=== PATIENT | female | born 1970 | race Caucasian/White ===

== ENCOUNTER 2020-08-04 07:10 | Day surgery (SDC) | payer OTHER ==
[~2020-08-04] VITALS: Ht 170.2 cm; Wt 70.0 kg
[~2020-08-04 07:10] MED LIST: PRENATAL VITAM1 EACH PO; PROBIOTIC1 EAC1 PO
--- NOTE | 2020-08-04 08:29 | NUR ---
08/04/20 0829 Katherine Zhu 0867 PATIENT ARRIVES TO PACU AWAKE BUT DROWSY. ASLEEP WHEN NOT STIMULATED. RESP EVEN AND UNLABORED, NC AT 2 LITERS.
--- NOTE | 2020-08-04 10:20 | OR ---
[facility] [address], [place] [address] Signed DATE OF OPERATION: SURGEON: Steven Shipman MD PREOPERATIVE DIAGNOSES: 1. Irritable bowel syndrome. 2. Generalized abdominal pain. 3. Bloating. 4. Constipation and diarrhea. 5. Elevated stool calprotectin (82). 6. Paternal grandfather with colon cancer and polyps, late 70s. POSTOPERATIVE DIAGNOSES: 1. Minimal sigmoid diverticulosis. 2. 4 mm polyp at 35 cm. PROCEDURE: Colonoscopy with cold biopsies of the right colon, transverse colon, left colon, sigmoid colon and rectum. ESTIMATED BLOOD LOSS: None. INDICATIONS: Carmelo is a 49-year-old female asked to see me for a colonoscopy. She has had various abdominal complaints as listed above. She has been diagnosed with irritable bowel syndrome back to around [address] Dr[address] Andres Simon was her web marketing specialist 5 years ago. He is now retired. She had an upper endoscopy at that time and the biopsies were unremarkable. She feels like her symptoms are getting worse. She has been following along with her geographic area intelligence officer and her chiropractor. Her stool calprotectin level was elevated at 82. Consequently, she has been asked to see me for colonoscopy with biopsies. In addition, her paternal grandfather had colon cancer and polyps in his late 70s. He is still alive at age 100. She also mentioned the previous barium enema with Dr. Simon. In the office, I gave her a pamphlet on colonoscopy and we looked at that together along with the risks including, but not limited to gas bloating, crampy abdominal pain, bleeding, perforation requiring surgery, and missed diagnosis. We also discussed the need for IV conscious sedation. She had expressed understanding and wished to proceed. PROCEDURE NOTE: Carmelo was taken into our endoscopy suite and placed in the left lateral decubitus Electronically Signed By: STEVEN SHIPMAN MD 08/04/20 1020 PATIENT NAME: CARMELO SANCHEZ OPERATIVE REPORT DATE OF : 74 REPORT #: [id number] PHYSICIAN: STEVEN SHIPMAN MD PCP: DELANEY BYERS PAC REPORT IS CONFIDENTIAL AND NOT TO BE RELEASED WITHOUT AUTHORIZATION [facility] [address], [place] [address] Signed position. She took a total of 12 mg of Versed and 200 mcg of fentanyl to cover the case. A digital rectal exam was performed and this was unremarkable. She has excellent perianal hygiene. She had good sphincter tone. The adult colonoscope was then introduced and advanced under direct visualization of camera. It took some extra sedation and abdominal compression in order to advance the scope directly into the cecum itself. Her prep was quite good. We could easily see her appendiceal orifice. We made multiple attempts to turn and go into the terminal ileum. However, the angle was quite sharp and we never were able to intubate the terminal ileum. Consequently, we slowly withdrew the scope. We had taken pictures throughout for photodocumentation. We saw no inflammatory changes whatsoever throughout her entire colon or rectum. We took the random biopsies as listed above. She does have a few diverticula in the sigmoid colon. They were small in size, few in number, and scattered about. Once in the rectum, the scope had been retroflexed and she has very minimal standard internal hemorrhoid tissue. After this, the gas was suctioned out and the colonoscope removed. Carmelo tolerated the procedure quite well. RECOMMENDATIONS: I will see Carmelo back in my office in 7 to 14 days to review her results. She could always consider a small bowel follow-through and/or capsule endoscopy. Steven Shipman MD ALB/MODL /[id number] cc: MD Dr. Adeline Ramon PA-C Copies: STEVEN SHIPMAN MD Electronically Signed By: STEVEN SHIPMAN MD 08/04/20 1020 PATIENT NAME: CARMELO SANCHEZ OPERATIVE REPORT DATE OF : 74 REPORT #: [id number] PHYSICIAN: STEVEN SHIPMAN MD PCP: DELANEY BYERS REPORT IS CONFIDENTIAL AND NOT TO BE RELEASED WITHOUT AUTHORIZATION [address] [address] Signed DELANEY BYERS ~ Electronically Signed By: STEVEN SHIPMAN MD 08/04/20 1020 PATIENT NAME: JOSE ENRIQUEDOLORESCARMELO JANEE OPERATIVE REPORT DATE OF : 74 REPORT #: [id number] PHYSICIAN: STEVEN SHIPMAN MD PCP: DELANEY BYERS PAC REPORT IS CONFIDENTIAL AND NOT TO BE RELEASED WITHOUT AUTHORIZATION
--- NOTE | 2020-08-09 15:30 | PATH ---
[facility] [address] [place], [place] [address] Signed SPECIMEN(S): A COLON POLYP AT 45 CM SPECIMEN(S): B ASCENDING COLON BIOPSY SPECIMEN(S): C TRANSVERSE COLON BIOPSY SPECIMEN(S): D DESCENDING COLON BIOPSY SPECIMEN(S): E SIGMOID COLON BIOPSY SPECIMEN(S): F RECTUM SPECIMEN SOURCE: A. COLON POLYP AT 45 CM B. ASCENDING COLON BIOPSY C. TRANSVERSE COLON BIOPSY D. DESCENDING COLON BIOPSY E. SIGMOID COLON BIOPSY F. RECTUM CLINICAL HISTORY: IBS. Diarrhea. MICROSCOPIC DESCRIPTION: Histologic sections of all submitted blocks are examined by light microscopy. A Arron stain (with appropriately staining controls) on speimcen B is negative for Spirochetosis. These findings, together with the gross examination, support the pathologic diagnosis. FINAL PATHOLOGIC DIAGNOSIS: A. Colon, polyp at 45 cm, polypectomy: - Tubular adenoma. - Negative for high-grade dysplasia or malignancy. B. Colon, ascending, biopsy: - Colonic mucosa with no histopathologic abnormality. - Negative for active, chronic, or microscopic colitis. - Negative for dysplasia or malignancy. C. Colon, transverse, biopsy: - Colonic mucosa with no histopathologic abnormality. - Negative for active, chronic, or microscopic colitis. - Negative for dysplasia or malignancy. D. Colon, descending, biopsy: - Colonic mucosa with no histopathologic abnormality. - Negative for active, chronic, or microscopic colitis. - Negative for dysplasia or malignancy. E. Colon, sigmoid, biopsy: - Colonic mucosa with no histopathologic abnormality. PATIENT NAME: CARMELO SANCHEZ PATHOLOGY DATE OF : 74 REPORT #: [id number] PHYSICIAN: MERLYN DALY PCP: DELANEY BYERS PAC REPORT IS CONFIDENTIAL AND NOT TO BE RELEASED WITHOUT AUTHORIZATION [facility] [address] [place], [place] [address] Signed - Negative for active, chronic, or microscopic colitis. - Negative for dysplasia or malignancy. F. Rectum, biopsy: - Rectal mucosa with no histopathologic abnormality. - Negative for active or chronic proctitis. - Negative for dysplasia or malignancy. NAL:cml:C2NR GROSS DESCRIPTION: Six specimens are received in six containers, labeled "JS." A. The specimen, labeled "JS, colon polyp at 45 cm," is received in formalin and consists of one conn soft tissue fragment that measures 0.2 cm in greatest dimension. The specimen is entirely submitted in cassette (A1). B. The specimen, labeled "JS, ascending colon biopsy," is received in formalin and consists of one conn soft tissue fragment that measures 0.2 cm in greatest dimension. The specimen is entirely submitted in cassette (B1). C. The specimen, labeled "JS, transverse colon biopsy," is received in formalin and consists of one conn soft tissue fragment that measures 0.2 cm in greatest dimension. The specimen is entirely submitted in cassette (C1). D. The specimen, labeled "JS, descending colon biopsy," is received in formalin and consists of one conn soft tissue fragment that measures 0.1 cm in greatest dimension. The specimen is entirely submitted in cassette (D1). E. The specimen, labeled "JS, sigmoid colon biopsy," is received in formalin and consists of one conn soft tissue fragment that measures 0.2 cm in greatest dimension. The specimen is entirely submitted in cassette (E1). F. The specimen, labeled "JS, rectum biopsy," is received in formalin and consists of one conn soft tissue fragment that measures 0.1 cm in greatest dimension. The specimen is entirely submitted in cassette (F1). JS (under the direct supervision of a pathologist) The Gross Description was prepared using a voice recognition system. The report was reviewed for accuracy; however, sound-alike word errors, addition and/or deletions may occur. If there is any question about this report, please contact Client Services. PATIENT NAME: CARMELO SANCHEZ PATHOLOGY DATE OF : 74 REPORT #: [id number] PHYSICIAN: MERLYN DALY PCP: DELANEY BYERS PAC REPORT IS CONFIDENTIAL AND NOT TO BE RELEASED WITHOUT AUTHORIZATION [facility] [address] [place], [place] [address] Signed PERFORMING LABORATORY: The technical component was performed by [email or web address] [address] (Interior Design Coordinator: Mayra Good MD; CLIA# [id number]). [facility], [address] [address] (CLIA# [id number]). Diagnostician: Fallon Blount MD Pathologist Electronically Signed 08/09/2020 Copies: ~ PATIENT NAME: CARMELO SANCHEZ PATHOLOGY DATE OF : 74 REPORT #: [id number] PHYSICIAN: MERLYN PATHOLOGY PCP: DELANEY BYERS REPORT IS CONFIDENTIAL AND NOT TO BE RELEASED WITHOUT AUTHORIZATION
== END 2020-08-04 09:40 | disposition home or self-care (01) ==
LOC: OPS 07:10 → DS 07:10 → OPS 08:15
PROVIDERS: ATTEND Colon & Rectal Surgery
PROC: 0DBK8ZX Excision of Ascending Colon, Via Natural or Artificial Opening Endoscopic, Diagnostic (ICD-10-PCS; 2020-08-04)
PROC: 0DBL8ZX Excision of Transverse Colon, Via Natural or Artificial Opening Endoscopic, Diagnostic (ICD-10-PCS; 2020-08-04)
PROC: 0DBN8ZX Excision of Sigmoid Colon, Via Natural or Artificial Opening Endoscopic, Diagnostic (ICD-10-PCS; 2020-08-04)
PROC: 0DBP8ZX Excision of Rectum, Via Natural or Artificial Opening Endoscopic, Diagnostic (ICD-10-PCS; 2020-08-04)
PROC: 0DBM8ZX Excision of Descending Colon, Via Natural or Artificial Opening Endoscopic, Diagnostic (ICD-10-PCS; 2020-08-04)
PROC: 0DBE8ZX Excision of Large Intestine, Via Natural or Artificial Opening Endoscopic, Diagnostic (ICD-10-PCS; principal; 2020-08-04 08:15)
DX: R19.7 Diarrhea, unspecified (principal); R10.84 Generalized abdominal pain; R14.0 Abdominal distension (gaseous); K57.30 Diverticulosis of large intestine without perforation or abscess without bleeding; D12.6 Benign neoplasm of colon, unspecified; Z88.0 Allergy status to penicillin; Z88.2 Allergy status to sulfonamides; Z80.0 Family history of malignant neoplasm of digestive organs
CPT/HCPCS: 84703; 99153; G0500; J2250; J3010; J7121

== ENCOUNTER 2021-02-01 15:18 | Emergency (ER) | payer OTHER ==
[~2021-02-01] VITALS: Ht 170.2 cm; Wt 65.8 kg
[2021-02-01] MEDS ORDERED: SERTRALINE HCL50 MG PO (16:00)
[2021-02-01] MEDS ORDERED: PROGESTERO50 MG/1 M1 IM (16:01)
--- NOTE | 2021-02-01 17:00 | EKG ---
[facility] [address] [facility] [place], [place] [address] Signed Sinus tachycardia T wave abnormality, consider inferior ischemia Abnormal ECG No previous ECGs available Confirmed by JAYLEEN QIU DO ([id number]) on 02/01/2021 5:00:24 PM Electronically Signed By: JAYLEEN QIU DO 02/01/21 1700 PATIENT NAME: CARMELO SANCHEZ Electrocardiogram DATE OF : 74 PHYSICIAN: JAYLEEN QIU DO REPORT #: [id number] REPORT IS CONFIDENTIAL AND NOT TO BE RELEASED WITHOUT AUTHORIZATION
[2021-02-01] MEDS ORDERED: HYDROCODON-ACE1 EA10 PO (19:06)
[2021-02-01] MEDS ORDERED: PROMETHAZINE HC25 MG PR (19:06)
== END 2021-02-01 19:45 | disposition home or self-care (01) ==
LOC: ED 15:18
DX: U07.1 COVID-19 (principal); Z88.0 Allergy status to penicillin; Z88.2 Allergy status to sulfonamides; Z79.899 Other long term (current) drug therapy
CPT/HCPCS: 71045; 80053; 83735; 84484; 85007; 85025; 93005; 93010; 96374; 96375; 99284-25; C9803; J1885; J2405; J2765; J7030; U0003

== ENCOUNTER 2021-02-03 10:35 | Inpatient (IN) | payer OTHER ==
[~2021-02-03] VITALS: Ht 170.2 cm; Wt 68.2 kg
[~2021-02-03 10:35] MED LIST changes: +HYDROCODON-ACE1 EA10 PO; +PROGESTERO50 MG/1 M1 IM; +PROMETHAZINE HC25 MG PR; +SERTRALINE HCL50 MG PO
--- OUTSIDE RECORDS SUMMARY | 2021-02-03 10:42 | XMS ---
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 Unique has no Care Guidelines for this patient. [facility] VISIT COUNT (12 MO.) 2 [facility] T[facility] NOTE: Visits indicate total known visits. ED/C VISIT TRACKING (12 MO.) [facility] [place] TYPE: Emergency COMPLAINT: - COVID+,N/V,ABD PAIN 02/01/2021 15:18 [facility] [place] TYPE: Emergency COMPLAINT: - ABD PAIN, HEADACHE, NAUSEA INPATIENT VISIT TRACKING (12 MO.) No inpatient visits to display in this time frame [email or web address]
--- NOTE | 2021-02-03 20:25 | NUR ---
PT ARRIVES TO FLOOR. ADMISSION PROCESS COMPLETED. PT ASSISTED UP TO THE BATHROOM AND BACK TO BED. PT UNSTEADY ON HER FEET EDUCATION PROVIDED REGARDING NOT GETTING UP WITHOUT ASSISTANCE. PT STATES UNDERSTANDING. CALL LIGHT PROVIDED, AND EDUCATION ON HOW TO USE. CLINIQUE COUNTER MANAGER TO ROOM TO TAKE PT TO CT. PT DENIES NEEDS AT THIS TIME.
--- NOTE | 2021-02-03 21:45 | NUR ---
Up to bsc, voided, back to bed, unsteady gait, 1pa, on room air. tele#[address] Back from DI
--- NOTE | 2021-02-03 22:51 | NUR ---
PT CONTINUES TO C/O ABD/H/E AND NECK PAIN, ABLE TO TURN AND EXTEND HEAD/NECK AREA. DRY HEAVING, MEDICATED WITH DILAUDID 1MG IV AND ANTIEMETIC MED. IVF STARTED AND PROTONIX GIVEN. MED TEACHING ON ALL MEDS DONE. FIELD START IV LAC PATENT. COOP WITH ASSESSMENT. TELE#[address]. DESSATTED TO 84% A FEW MINUTES AFTER BEING MEDICATED, VERY DROWSY. AND O2 1L NC APPLIED, CURRENTL SATS 88%. INCREASED TO 2LNC AND SATTING AT 92%, MOIST NON PRODUCTIVE COUGH PRESENT, HOB ELEVATED, TOLERATING ICE CHIPS. CALL LIGHT AT BEDSIDE. ON AIRBORNE ISOLATION PRECAUTIONS
--- NOTE | 2021-02-04 01:01 | NUR ---
RESTING, NO FURTHER C/O N/V OR PAIN. RESTING, O2 2L NC IN PLACE SATS 94% PER TELE#10 SINUS RHYTHM
--- NOTE | 2021-02-04 03:06 | NUR ---
MEDICATED WITH DILAUDID 0.5MG IV C/O 02/14 NECK/ONOFRE ABD PAIN, MEDICATED WITH ZOFRAN 4MG IV PER DRY HEAVING , REPOSITIONS SELF IN BED. CALL LIGHT AT HANDS REACH. IVF INFUSING W/O PROBLEMS
--- NOTE | 2021-02-04 04:27 | NUR ---
Pt had a CT scan ogf abd shortly after being admitted from the ED. pt c/o neck/head and abd pain, was medicated with Dilaudid IV x2 with good pain relief. medicated with zofran, compazine per dry heaving and c/o feeling nausea. turns and repositions self. unseteady when up to br and BSC, voided QS. pt aware of proning positons, repositions self in bed. uses call light, slept. continues on airborne isolation precautions
--- NOTE | 2021-02-04 06:29 | NUR ---
IN TO DO VITALS. pt LAYING IN BED MOANING. PRN PAIN MEDS GIVEN FOR 8 HEADACHE/BACK/ABDOMINAL PAIN. PRN NAUSEA MEDICATION, pt ACTIVELY DRY HEAVING, NO EMESIS NOTED. NEW BAG OF FLUIDS HUNG, SCHEDULED MEDICATION GIVEN. pt ABLE TO PIVOT TRANSFER TO BSC WITH ASSISTANCE. URINE DARK YELLOW. EDUCATION DONE ON MEDICATION, SYMPTOM MANAGEMENT AND PRONING PROTOCOL. pt VERBALIZED UNDERSTANDING OF ALL EDUCATION. QUESTIONS ANSWERED. pt SITTING UP IN BED, RESTING. CALL LIGHT WITHIN REACH.
--- NOTE | 2021-02-04 06:39 | NUR ---
DR CURTIS NOTIFIED OF 102.2 TEMP ON ADMIT.
--- NOTE | 2021-02-04 07:30 | NUR ---
THIS RN RECEIVED REPORT FROM ALEXIS BYRNE. PT APPEARS TO BE RESTING AT THIS TIME AND THIS RN NOTED PTS CPOX ON THE MONITOR THIS AM.
--- NOTE | 2021-02-04 08:30 | NUR ---
PATIENT SITTING IN THE BED. SHOWER OFFERED PATIENT REFUSED SAYS SHE IS JUST TO TIRED AND NOT FEELING GOOD. PATIENT REFUSED A WARM WASHCLOTH. SHE GOT BREAKFAST. CALL LIGHT WITHIN REACH. NO FURTHER NEEDS AT THIS TIME.
--- NOTE | 2021-02-04 08:55 | NUR ---
THIS RN IN PTS ROOM TO CHECK ON PT AND DO A PLAN OF CARE FOR THE DAY. PT STATES UNDERSTANDING WIHT PLAN OF TRYING TO GET FOOD OR FLUIDS IN.
--- NOTE | 2021-02-04 09:45 | NUR ---
THIS RN IN PTS ROOM TO CHECK ON PT AND GIVE HER COMPAZINE. PT STATES THAT SHE NEEDS TO VOID. THIS RN SBA PT TO COMMODE. PT ABLE TO DO IT ALL BY HERSELF, THIS RN FOR MORAL SUPPORT. VITALS AND I&OS DONE. THIS RN NOTED A TEMP OF 100.5 AND NOTIFIED , OBTAINED VERBAL ORDER FOR BLOOD CULTURES.
--- NOTE | 2021-02-04 11:15 | NUR ---
THIS RN IN PTS ROOM TO ATTMPT BLOOD CUTURES THIS RN UNSUCCESSFUL. WILL ATTEMPT TO HAVE ANOTHER NURSE ATTEMPT.
--- NOTE | 2021-02-04 11:50 | NUR ---
PT WITH FEVER. ORDER FOR BLOOD CULTURES. IN TO DRAW. 4 ATTEMPTS. 1 IV PLACED AND 1 SET OF BLOOD CULTURES DRAWN AND SENT TO LAB. PT WIHT NAUSEA AND ABDOMINAL PAIN. PRIMARY NURSE NOTIFIED. AND PT LEFT TO REST.
--- NOTE | 2021-02-04 12:15 | NUR ---
THIS RN IN PTS ROOM TO GIVE PT PAIN MEDS AND NAUSEA MEDICATION. PRIOR TO THIS RN LEAVING ROOM PT APPEARS TO BE MORE COMFORTABLE AND IS NOT DRY HEAVING AT THIS TIME. PT ABLE TO REPORT THAT SHE IS MORE COMFORTALBE. THIS RN ALSO PROVIDED PT WITH ICE CHIPS, COLD WASH CLOTHES AND ICE PACK FOR COMFORT. PT ABLE TO TAKE PO TYLENOL FOR HER FEVER
--- NOTE | 2021-02-04 12:23 | NUR ---
UPDATE OF PLAN OF CARE PROVIDED TO [facility] KASEY LAURA VIA TELEPHONE. ALL QUESTIONS ANSWERED.
--- NOTE | 2021-02-04 14:30 | NUR ---
THIS RN IN PTS ROOM TO CHECK ON PT AND GIVE HER SOME OF HER HOME MEDS. PT STATES THAT SHE IS STARTING TO GET NAUSEOUS AGAIN AND PAINFUL. THIS TO GO GET PT MEDS.
--- NOTE | 2021-02-04 15:10 | NUR ---
THIS RN BACK IN PTS ROOM TO GIVE PT HER DIALUADID AND REGLAN FOR COMFORT, PT ABLE TO STATE THAT SHE IS STARTING TO FEEL BETTER AFTER SHORTLY GETTING MEDS.
--- NOTE | 2021-02-04 19:45 | NUR ---
REPORT RECEIVED FROM DAY SHIFT RN. PT LYING IN BED WITH EYES CLOSED. RESPIRATIONS EVEN. 2L/NC IN PLACE. IVF INFUSING. CALL LIGHT IN REACH.
--- NOTE | 2021-02-04 22:00 | NUR ---
PT REPORTS 8/10 ONOFRE/ABD PAIN AND NAUSEA WITH DRY HEAVES. PRN FOR PAIN AND N/V ADMINISTERED PER EMAR. PT REPORTS RELIEF. EVENING ASSESSMENT COMPLETE. IVF INFUSING WNL. TELE MONITOR IN PLACE. SpO2 96% ON 2L/NC. RESPIRATIONS EVEN. PT DENIES SOB AT REST, BUT WITH ACTIVITY CHEST FEELS "TIGHT". LUNG SOUNDS DIM WITH CRACKLES IN THE BASES. SBA TO BSC TO VOID. GAIT WEAK. PT ABLE TO DO OWN STEPHANY CARE. CLEAN BRIEF PROVIDED DUE TO STRESS INCONTINENCE. BACK TO BED, [place] [employer]. PT DENIES QUESTIONS OR CONCERNS. FRESH ICE CHIPS AND ICE PACK FOR ONOFRE PROVIDED. NO FURTHER NEEDS AT THIS TIME. CALL LIGHT IN REACH.
--- NOTE | 2021-02-04 23:51 | NUR ---
CALL LIGHT ANSWERED. PT REPORTS HEADACHE/ABD PAIN AND SUDDEN NAUESA WITHOUT EMESIS. PRN FOR PAIN AND N/V ADMINISTERED PER EMAR. PO TYLENOL ADMINISTERED WITH SIPS OF SPRITE. FRESH ICE CHIPS PROVIDED. NO FURTHER NEEDS. CALL LIGHT IN REACH.
--- NOTE | 2021-02-05 00:36 | NUR ---
PT SpO2 NOTED ON TELE SCREEN TO BE DOWN TO 86% ON 2L/NC. PT LYING ON LEFT SIDE UPON ENTERING ROOM. REPORTS SHE WAS "SLEEPING WELL". OXYGEN TITRATED TO 3L/NC. PT UNABLE TO SUSTAIN >90% FOR LONG. OXYGEN TITRATED TO 5L/NC. SpO2 95% AT THIS TIME. RESPIRATIONS EVEN. PT DENIES FURTHER NEEDS. CALL LIGHT IN REACH.
--- NOTE | 2021-02-05 02:48 | NUR ---
CALL LIGHT ANSWERED. IV PUMP ALARMING. NEW BAG IVF INFUSING WNL. PRN FOR PAIN AND NAUSEA ADMINISTERED PER EMAR. PT COUGHING UP SMALL AMOUNTS OF PINK TINGED WHITE SPUTUM. RESPIRATIONS EVEN AND NON LABORED. PT DENIES SOB. SpO2 97% ON 5L/NC. FRESH ICE CHIPS AND JELLO PROVIDED.
--- NOTE | 2021-02-05 06:45 | NUR ---
CALL LIGHT ANSWERED. PT UP TO BSC WITH SBA TO VOID 350 ML CONCENTRATED URINE. [place] FAIR. LINENS AND GOWN WET WITH SWEAT. DRY GOWN AND LINENS PROVIDED. PT BACK TO BED. VS AND I&O COMPLETE, WNL. 5L/NC IN PLACE. SpO2 95-97%. RESPIRATIONS EVEN. REPORTS SOB WITH ACTIVTY. OCCASIONAL PRODUCTIVE COUGH NOTED. PT REPORTS ABD/ONOFRE PAIN 7/10 WITH NAUSEA. PT TREMULOUS AT TIMES, REPORTS IT IS DUE TO PAIN. PRN FOR PAIN AND N/V ADMINISTERED PER EMAR. PT REPORTS RELIEF AFTER ADMINISTRATION. FRESH ICE CHIPS AND WARM TEA PROVIDED. PT DENIES FURTHER NEEDS AT THIS TIME. CALL LIGHT IN REACH.
--- NOTE | 2021-02-05 08:30 | NUR ---
THIS RN IN PTS ROOM PER PT REQUEST. THIS RN PROVIDED PT WITH ANTINAUSEA MED AND 0.5MG OF DIALUDID. PT STATES THAT SHE IS HAVING ABD PAIN AND NAUSEA, SHE ALSO STATES THAT SHE STILL HAS A HEADACHE
--- NOTE | 2021-02-05 09:30 | NUR ---
THIS RN IN PTS ROOM TO PROVIDE PT WITH HER SCHEDULED MEDS. PT STATES THAT SHE IS FEELING BETTER AND IS ABLE TO GET A CRACKER DOWN AND SOME JELLO
--- NOTE | 2021-02-05 12:30 | NUR ---
this rn in pts room to check on pt. pt dry heaving and states that she has some gi upset and upset tummy but pain appears to be getting better. pt reports that her headache is improving
--- NOTE | 2021-02-05 14:07 | NUR ---
IN ROOM FOR AFTERNOON VITALS. PT REPORTS NAUSEA AND IS DRY HEAVING THIS NURSE IS IN THE ROOM. PRIMARY RN JANES BRINGS PRN 5MG REGLAN ADMINISTERED AT THIS TIME. VITALS AND I&OS COMPLETE. PT THEN REPORTS PAIN 9/10 IN ABDOMEN AND BACK. 0.5MG PRN DILAUDID IV NOW. PT DOES CALM ALMOST IMMEDIATELY. IV IN LEFT HAND WHERE IVF WERE INFUSING APPEARS SWOLLEN; PT REPORTS PAIN. IVF TRANSFERRED TO RT HAND IV. PT REPORTS NO PAIN IN THIS IV. ICE PACK AND COLD WET WASHCLOTH PROVIDED. PT DENIES FURTHER NEEDS AT THIS TIME. CALL LIGHT WITHIN REACH, BEDSIDE TABLE WITHIN REACH.
--- NOTE | 2021-02-05 15:45 | NUR ---
this rn to check on pt. pt states that she is getting nauseous at this time. this rn discussed with pt about needing to talk to md about pts symptoms. this rn discussed with md about changing up pts meds. pt can now have benadryl and decreased the time on her diluadid.
--- NOTE | 2021-02-05 16:15 | NUR ---
this rn in pts room to discuss pts goals of care. this rn discussed with pt that she may still be nauseous even after getting meds and needing to follow the course of the virus. pt does vomit only when she has a coughing fit. this rn to give pt 25mg of benadryl due to pt really liking that dilaudid was "relaxing" her, benadryl to hopefully assist pt to get off of oxygen.
--- NOTE | 2021-02-05 16:45 | NUR ---
pt off oxygen and then desated at sustained 86%, pt was attempting to rest and not taking deep breaths, this rn instructed pt to put her oxygen back on, pt able to do this and o2 appears to be going back up at 93% on 1l
--- NOTE | 2021-02-05 19:15 | NUR ---
REPORT RECEIVED FROM DAY SHIFT RN. PT LYING IN BED ALERT AND ORIENTED. RESPIRATIONS EVEN. SpO2 93% ON RA. HR 80'S. DENIES NEEDS AT THIS TIME. CALL LIGHT IN REACH.
--- NOTE | 2021-02-05 21:00 | NUR ---
PT TO SHOWER INDEPENDENTLY. REPORTED SHE STOOD A COUPLE TIMES WHILE IN THE SHOWER AND WOULD BECOME DIZZY AND WEAK SO SHE QUICKLY SAT DOWN. PT ALSO REPORTS SHE DID NOT FEEL THOUGH SHE HAD THE ENERGY TO STAND AT SINK FOR PM CARES, WILL TRY AGAIN AFTER REST. THIS RN IN ROOM DURING SHOWER. SpO2 94% ON RA AFTER RETURNING TO BED. LINENS CHANGED. EVENING ASSESSMENT COMPLETE. PT ON RA. SpO2 92-96% AT REST. RESPIRATIONS EVEN. CRACKLES HEARD IN LUNG BASES. OCCASIONAL PRODUCTIVE COUGH WITH PINK TINGED SPUTUM. PT REPORTS ABD/ONOFRE PAIN 7/10 AND NAUSEA. PRN FOR PAIN AND NAUSEA PROVIDED PER EMAR. IVF INFUSING WNL. TELE CPOX IN PLACE. FRESH WATER AND ICE CHIPS PROVIDED. PT DENIES FURTHER NEEDS. CALL LIGHT IN REACH.
--- NOTE | 2021-02-05 21:46 | NUR ---
PT SpO2 NOTED TO BE 86-88% ON RA. PT REPORTS SHE WAS RESTING WELL. 2L/NC PLACE. SpO2 UP TO 95%.
--- NOTE | 2021-02-05 23:14 | NUR ---
CALL LIGHT ANSWERED. PT REQUESTING PRN FOR NAUSEA. ORAL PRN FOR N/V ADMINISTERED PER EMAR. PRN BENADRYL FOR SLEEP PROVIDED REQUESTED BY PT. NO FURTHER NEEDS AT THIS TIME. CALL LIGHT IN REACH.
--- NOTE | 2021-02-06 00:30 | NUR ---
WENT IN TO THE ROOM TO CHANGE THE TELE BATTERY. PATIENT WAS AWAKE STATED "CAN NOT SLEEP. PATIENT USED THE BEDSIDE COMMODE. NEW PULL UPS PROVIDED. PATIENT STATED SHE IS FEELING BETTER, THAT SHE ABLE TO EAT SOME BANANA. APPLE SAUCE PROVIDED.
--- NOTE | 2021-02-06 02:17 | NUR ---
IV PUMP ALARMING. NEW BAG IVF INFUSING WNL. PT REPORTS SHE WAS ABLE EAT HALF A BANANA AND BITES OF APPLE SAUCE. C/O SLIGHT NAUSEA BUT WANTS TO "POWER THROUGH" AND "MOVE ON". DENIES THE NEED FOR PRN N/V AT THIS TIME. PT REPORTS SHE IS RESTLESS AND UNABLE TO SLEEP. AFTER SHOWER SHE DEVELOPED ITCHY RAISED BUMPS ON FRONT AND BACK OF TORSO. PT SAYS SHE IS SENSITIVE TO CERTAIN SOAPS AND SCENTS AND RELATES RASH TO SHOWER GEL. LOTION PROVIDED FOR ITCHING. PRN TYLENOL PROVIDED FOR DISCOMFORT. WARM HERBAL TEA PROVIDED. OXYGEN REMOVED AT THIS TIME. SpO2 90-93% ON RA. PT DENIES SOB.
--- NOTE | 2021-02-06 04:12 | NUR ---
CALL LIGHT ANSWERED. PT REPORTING NAUSEA, FEELING DIZZY AND FEBRILE. PRN ADMINISTERED FOR NAUSEA PER EMAR. VS WNL. PT AFEBRILE. COOL WASH CLOTH PROVIDED. SpO2 88-94% ON RA. 2L/NC PLACED. PT EMOTIONAL SHE THOUGHT SHE WAS "GETTING BETTER". REASSURANCE PROVIDED. IVF INFUSING WNL. PT REPORTS HEAD ACHE PAIN /, REFUSES IV PRN FOR PAIN AT THIS TIME.
--- NOTE | 2021-02-06 06:30 | NUR ---
SCHEDULED MEDS ADMINISTERED PER EMAR. PT SITTING UP IN BED. RA. SpO2 94%. REPORTS PAIN/NAUSEA TOLERABLE AT THIS TIME. REGULAR BREAKFAST ORDERED. NO FURTHER NEEDS AT THIS TIME. CALL LIGHT IN REACH.
[2021-02-06] MEDS ORDERED: ONDANSETRON ODT4 MG SL (09:17)
[2021-02-06] MEDS ORDERED: VISTARIL25 MG PO (09:18)
--- NOTE | 2021-02-06 09:30 | NUR ---
MED REC COMPLETE
== END 2021-02-06 12:05 | disposition home or self-care (01) | DRG 179 ==
LOC: ED 10:35 → MS 18:37
PROVIDERS: ADMIT Internal Medicine; ATTEND Internal Medicine
PROC: 8E0ZXY6 Isolation (ICD-10-PCS; principal; 2021-02-03)
DX: U07.1 COVID-19 (principal); R11.2 Nausea with vomiting, unspecified; E86.0 Dehydration; K58.9 Irritable bowel syndrome, unspecified; Z88.0 Allergy status to penicillin; Z88.2 Allergy status to sulfonamides
CPT/HCPCS: 74177; 76705; 80048; 80053; 80500; 81001; 83605; 83690; 83735; 85025; 85610; 85730; 87040; 94760; C9113; J0780; J1170; J1200; J1885; J2405; J2550; J2765; J3010; J3480; J7030; J7120; Q9967